=== PATIENT | female | born 1960 | race Caucasian/White ===

== ENCOUNTER → 2016-07-09 | Outpatient (CLI) | payer OTHER ==
--- NOTE | 2016-07-10 09:39 | Diagnostic Imaging Report ---
INDICATION: Screening. COMPARISON: June 2013. The current digital study was evaluated with a Computer Aided Detection (CAD). FINDINGS: There are no masses. There are no clustered calcifications. There is noted dense vascular calcification. The breasts have a heterogeneous dense appearance. IMPRESSION: Stable bilateral mammogram. ACR BI-RADS Category 2: Benign findings. Result letter will be mailed to the patient. Note: At least 10% of breast cancer is not imaged by mammography. Dictated by: Dictated on workstation # [id number]
== END ==
LOC: RAD 07-08 13:39
PROVIDERS: ATTEND Family Medicine
DX: Z12.31 Encounter for screening mammogram for malignant neoplasm of breast (principal)